=== PATIENT | male | born 1955 | race Caucasian/White ===

== ENCOUNTER 2023-12-09 15:30 | Inpatient (IN) | payer OTHER, SELFPAY ==
[2023-12-09] VITALS (28 sets, daily range): BP systolic 86–129; BP diastolic 60–100; BMI 22.1; BMI 21.1
--- NOTE | 2023-12-09 10:46 | ED.GENMED ---
History of Present Illness
General
Chief Complaint: Breathing Problem
Source: patient
Exam Limitations: none
Time Seen by Provider: 12/09/23 10:16
Nursing documentation reviewed up to this point in time: agreed with
Travel History
Have you had any contact with someone who has COVID-19?: No
Do you have any symptoms of coronavirus? Fever > 100 degrees, chills, cough, shortness of breath, sore throat, loss of taste or smell, muscle aches, or headache?: No
History of Present Illness
History of Present Illness:
The patient is a 68-year-old man with a past medical history of atrial fibrillation, CHF, COPD, and pulmonary hypertension who was sent from Dr. Arzola's office today for shortness of breath, acute hypoxia, hypotension and concerns for possible
CHF. Patient reports severe swelling of both of his legs and states that the fluid is accumulating now into his abdomen. He reports the swelling in his legs have gotten worse over the last 2 weeks. He denies worsening cough and and any fever. He
denies chest pain. He reports he has only been compliant with his Eliquis and admits that he has not taken any of his other medication. Patient reports he does not use oxygen at baseline. Patient reports he last had Eliquis this morning.
Past History
Past History
ED Past Medical History: Arrthythmia (AFib), Cancer (Lung cancer), CHF, COPD and HTN
ED Past Surgical History: Other
Social History
Tobacco: Former smoker
Alcohol: Former
Drug: None
Personal: Other (Has a girlfriend)
Living: with family
Employment: Other
Family History
Family History: Other
Review of Systems
Review of Systems
Allergies reviewed?: Yes
Other source history: other (Dr. Arzola's office note from today)
All Other Systems: ROS reviewed and negative except as documented in HPI and ROS
Constitutional: Reports weight loss and fatigue
EENT: Reports no symptoms
Respiratory: Reports trouble breathing
Cardiac: Reports palpitations
ABD/GI: Reports anorexia
: Reports no symptoms
Musculoskeletal: Reports edema
Skin: Reports no symptoms
Neurological: Reports no symptoms
Endocrine: Reports no symptoms
Hematologic/Lymphatic: Reports no symptoms
Psychiatric: Reports no symptoms
Phy Exam
Physical Exam
Physical Exam:
Physical Exam
General: Chronically ill-appearing, pale, conversational in no acute distress
Neck: supple.
Heart: Irregular, tachycardic
Lungs: no acute respiratory distress. Decreased breath sounds bilaterally, right greater than left
Abdomen: normal bowel sounds. not tender. no CVAT
Neuro: alert and oriented. no focal neurological deficits
Skin: no rash
Psychiatric: well kept. interactive and cooperative
Extremities: 3+ pitting edema bilateral lower extremities up to bilateral upper legs with weeping legs
Scores
Heart Failure Risk
Heart Failure Risk Score: Not Applicable
Course
Orders/Labs/Results
Orders:
Orders
12/09/23 10:43
Basic Metabolic Panel Urgent
Complete Blood Count/With Diff Urgent
NT-proBNP Urgent
Prothrombin Time Urgent
Troponin I Urgent
12/09/23 10:44
CR Chest Portable - 1 View Urgent
Comment:
Reason For Exam: SOB, hypoxia
Reason Study Needs to be Portable: Patient Unstable
12/09/23 11:00
Diltiazem 125 mg/125 ml Nss [Cardizem] 125 mg in 125 ml IV NOW
Initial dose in mg/hr, then titrate:: 5
Titrate to keep:: Heart rate 80-100 bpm
Titrate by mg/hr:: 5 mg/hr
Frequency of titrations (minutes):: 15
Maximum dose in mg/hr:: 15
Diltiazem HCl [Cardizem] 5 mg IV NOW STA
12/09/23 11:36
Electrocardiogram (*1) Urgent
Reason for Study: Shortness of Breath
EKG- Treatment ONCE
12/09/23 11:43
Potassium Urgent
Abnormal Lab Results
12/09/23
10:43
MCHC 32.7 L g/dL
(33.0-37.0)
RDW 19.7 H %
(11.5-14.5)
MPV 11.0 H fL
(7.4-10.4)
PT 26.0 H Sec
(11.4-14.6)
Sodium 126 L mmol/L
(135-145)
Chloride 95 L mmol/L
(98-107)
Carbon Dioxide 21 L mmol/L
(22-30)
BUN 44 H mg/dl
(9-20)
12/09/23 10:43
12/09/23 11:43
Vital Signs
Initial and Last Documented VS:
Initial Vital Signs
Temp Pulse Resp BP Pulse Ox
97.4 F 72 16 122/96 76
12/09/23 10:04 12/09/23 10:04 12/09/23 10:04 12/09/23 10:04 12/09/23 10:04
Last Documented Vital Signs
Temp Pulse Resp BP Pulse Ox
97.4 F 72 16 122/96 76
12/09/23 10:04 12/09/23 10:04 12/09/23 10:04 12/09/23 10:04 12/09/23 10:04
MDM/Problems Addressed
Differential Diagnosis Includes:
Decompensated CHF due to uncontrolled A-fib, liver failure, metastatic cancer
MDM/Problems Addressed:
Patient presents with acute on chronic shortness of breath and bilateral leg edema as well as acute hypoxia
Chronic conditions affecting care: Cardiomyopathy, Arrhythmia and COPD
Acute Exacerbation and/or Progression of Chronic Illness:
Patient's symptoms may represent acute exacerbation of CHF and acute on chronic A-fib
Acute Exacerbation and/or Progression of Chronic Illness: Arrhythmia
*Pulse Oximetry
Patient hypoxic: yes
*EKG
Interpreted by ED Provider?: Yes
Interpretation: abnormal
Comparison EKG: changes noted
Rate: tachycardiac
Rhythm: a-fib
[place]: right axis deviation
Interval: normal interval
QRS Pattern: left vent hypertrophy
Ischemia: non-specific ST changes
*Combination Building Inspector Interpretation
Rate: tachycardiac
Interpretation: abnormal
Rhythm: a-fib
*Critical Care Note
Total Time (30-74mins, 75-104mins- exclusive of procedures): 45 min
comment:
45 minutes of critical care time given to the patient including reviewing his lab work, EKG, chest x-ray and discussing the case with hospitalist, sales account leader as well as reviewing prior medical records when patient was admitted for CHF and rapid
A-fib
Data Reviewed
Review of Other/Old Records Reveals: Discharge Summary (Discharge summary reviewed from hospitalist from 11/12 patient was admitted for CHF and rapid A-fib)
Source: patient
Patient Management
Discussion with other providers: Hospitalist and Other (Dr. Rowe recommending Cardizem drip as blood pressure tolerates)
Escalation/DeEscalation of care consider admission/obs:
Given patient's acute hypoxia and anasarca, decision made to admit the patient for uncompensated heart failure and to rate control his A-fib.
ED Attending Note
-
Portions of this chart may have been created with voice recognition software.� Occasional wrong word or��sound alike� substitutions may have occurred due to the inherent limitations of voice recognition software.
Discharge Plan
Departure
Patient Disposition: Admit
Date of Disposition: 12/09/23
Time of Disposition: 10:59
Admit to: Telemetry
Presentation/result/management discussed w/ accepting MD/DO: Hospitalist
Patient with high blood pressure during this ER visit?: Yes
Condition: Fair
Covid-19: Not Applicable
Discharge Problem:
Acute on chronic systolic CHF (congestive heart failure), Anasarca, Acute hyponatremia, Acute hypoxic respiratory failure, History of medication noncompliance
Prescriptions:
No Action
sennosides [Senokot] 8.6 mg Tablet
8.6 mg PO DAILY PRN (Reason: constipation)
Eliquis 5 mg Tablet
5 mg PO BID
Interventions
Interventions:
*Risk Screen - Suicide Last Done: 12/09/23 10:08
*General Assessment Last Done: 12/09/23 10:08
*Neglect/Abuse Screening Last Done: 12/09/23 10:08
Discharge Date and Time
Print Language: BENGALI
[2023-12-09 10:53] LABS: % Basophils 0.3 % (0-2); % Eosinophils 0.5 % (0-6); % Immature Granulocytes 0.2 % (0-0.5); % Lymphocytes 25.7 % (20.5-51.1); % Monocytes 5.7 % (1.7-9.3); % Neutrophils 67.6 % (42.2-75.2); Absolute Lymphocytes 1.5 10^3/uL (1.2-3.4); Absolute Monocytes 0.3 10^3/uL (0.1-0.6); Absolute Neutrophils 4.1 10^3/uL (1.4-6.5); Hematocrit 46.8 % (39.0-52.0); Hemoglobin 15.3 g/dL (13.0-18.0); Mean Corp Hgb Conc. 32.7 g/dL (33.0-37.0); Mean Corpuscular Hgb 29.5 pg (27.0-31.0); Mean Corpuscular Volume 90.3 fL (80.0-94.0); Nucleated Red Blood Cells % 0 % (-); Platelet Count 190 10^3/uL (130-400); Red Blood Cell Count 5.18 10^6/uL (4.70-6.10); Red Cell Dist. Width 19.7 % (11.5-14.5)
--- NOTE | 2023-12-09 11:01 | HPS.HSE ---
Family Physician
-
Family Physician:
Chief Complaint
-
Shortness of breath
History of Present Illness
68 male atrial fibrillation CHF COPD pulm hypertension former smoker alcohol use referred to ED for evaluation by machine tool builder following outpatient appointment noted concerns for acute hypoxic respiratory failure swelling lower extremities. Found
to be in A-fib RVR in the ED. Since improved on diltiazem gtt. Poor historian, noncompliant with his medications. Reports having self discontinued some of his medications due to feeling improved-did not feel that he required them anymore.
Reports compliance with Eliquis however. Denies chest pain palpitations fevers chills nausea vomiting diarrhea. Reports chronic intermittent constipation. Saturating low 90s on 2 L heart rate controlled and blood pressure stable on diltiazem gtt.
as prescribed by ED. Labs notable for hyponatremia 126 BNP 23,200 no kidney dysfunction insufficiency noted. Chest x-ray appreciated no active cardiopulmonary disease
Medical History
Past Medical History
Past Medical History: Reports Other (as above)
Past Surgical History: Reports Other (as above)
Social History
Tobacco: Former Smoker
Alcohol: Former
Living: Alone
Family History
Family History: Not pertinent (reviewed)
Allergies / Home Medications
Allergies reflects when Allergies were last updated in [facility].
Home Medications with original date entered in [facility]
Allergy/Medication List:
Allergies
Allergy/AdvReac Type Severity Reaction Status Date / Time
lobster Allergy Anaphylaxis Verified 12/09/23 16:49
Penicillins Allergy Unknown - Verified 12/09/23 10:03
Tolerates
ceftriaxone
Home Medications
apixaban 5 mg tablet (Eliquis) 5 mg PO BID 12/09/23
sennosides 8.6 mg tablet (Senokot) 8.6 mg PO DAILY PRN constipation 12/09/23
Review of Systems
-
A 12 point ROS was completed and negative except as noted: Yes
Constitutional: Reports Sleep Disturbance (as below)
Physical Exam
Vital Signs
Vital Signs
Temp Pulse Resp BP Pulse Ox
97.4 F 72 16 122/96 76
12/09/23 10:04 12/09/23 10:04 12/09/23 10:04 12/09/23 10:04 12/09/23 10:04
Physical Exam
General: Other (as below)
Laboratory Results
-
12/09/23 10:43
Impression/Plan
-
ROS
General: Denies fever chills night sweats unexpected weight loss
Neuro: Denies seizure shaking loss of consciousness dizziness vertigo
Psych: denies depression hallucinations confusion manic episodes
Endocrine: Denies polyuria polydipsia polyphagia heat/cold intolerance
HEENT: Denies blindness visual disturbances epistaxis
Pulmonary: denies coughing hemoptysis sneezing reports sob dyspnea on exertion
Cardiovascular: denies chest pain palpitations reports b/l leg swelling
Hematology: denies signs symptoms of anemia easy bruising/bleeding
Gastrointestinal: denies nausea vomiting diarrhea hematemesis hematochezia melena reports chronic intermittent constipation
Genito-Urinary: denies retention incontinence dysuria
Musculoskeletal: reports weakness ambulatory dysfunction, doesn't have a walker but uses chair in apartment to assist with mobility while home
Dermatology: weeping lower ext wounds swelling
Physical Exam
General: No pallor, cyanosis, or jaundice. Appears Chronically Ill Cachectic appearing thoracic upper body
HEENT: Throat clear. PERRLA Normocephalic atraumatic
NECK: Supple. No JVD Carotid Bruits
RESPIRATORY: Lungs clear to auscultation. No crackles wheezes stridor
CVS: S1, S2 normal. RRR. No murmur, rub or gallop.
ABDOMEN: Soft, non-tender. No distension. BS+/normal.
EXTREMITIES: Lower ext edema swelling b/l +2 pitting
BAGGAGE AGENT SUPERVISOR: AOx3
IMPRESSION:
68 male atrial fibrillation CHF COPD pulm hypertension former smoker alcohol use referred to ED for evaluation by machine tool builder following outpatient appointment noted concerns for acute hypoxic respiratory failure swelling lower extremities. Found
to be in A-fib RVR in the ED. Since improved on diltiazem gtt. Poor historian, noncompliant with his medications. Reports having self discontinued some of his medications due to feeling improved-did not feel that he required them anymore.
Reports compliance with Eliquis however. Denies chest pain palpitations fevers chills nausea vomiting diarrhea. Reports chronic intermittent constipation. Saturating low 90s on 2 L heart rate controlled and blood pressure stable on diltiazem gtt,
as prescribed by ED. Labs notable for hyponatremia 126 BNP 23,200 no kidney dysfunction insufficiency noted. Chest x-ray appreciated no active cardiopulmonary disease
PLAN:
#Acute on chronic HFmrEF
#A-fib RVR
#Acute hypoxic respiratory failure
IVU admit
Continue diltiazem gtt.
IV Lasix 20 twice daily
Cardio eval appreciated
Follow-up echo
Daily weight I/O
Continue Eliquis
PT/OT eval
#Hyponatremia
Fluid restriction
#COPD
#Pulm hypertension
No wheezing noted
Continue oxygen supplementation as necessary
Xopenex as needed, avoiding albuterol due to tachycardia as above
#Cachectic appearing thoracic upper body, bony promninence ribs noted
suspect malnutrition
dietary eval
DVT prophylaxis Eliquis
GI prophylaxis Protonix
Meds reconciled and resumed as appropriate
Full code
I spent a total of 77 minutes with the patient or on the floor. More than 50% of this time involved counseling and coordination of care.
[2023-12-09 11:03] LABS: INR 2.35
[2023-12-09] MEDS: CARDIZEM 5 MG IV (11:14)
[2023-12-09] MEDS: CARDIZEM 125 IV (11:14)
[2023-12-09 11:15] LABS: Blood Urea Nitrogen 44 mg/dl (9-20); Calcium 9.4 mg/dl (8.4-10.2); Carbon Dioxide 21 mmol/L (22-30); Chloride 95 mmol/L (98-107); Glucose 98 mg/dl (70-99); Sodium 126 mmol/L (135-145); eGFR > 60.00
[2023-12-09 11:21] LABS: NT-proBNP 23200 pg/ml; Troponin I 0.031 ng/ml
--- NOTE | 2023-12-09 11:57 | CON.CAR ---
Addendum entered and electronically signed by Valente Rowe MD 12/09/23 13:11:
I saw and examined the patient.
The SHIPYARD PAINTER HELPER's note was reviewed and I agree with the note.
68-year-old male with a history of persistent atrial fibrillation, anticoagulation with Eliquis, cirrhosis, nonischemic cardiomyopathy with ejection fraction of 45%, COPD, prior history of smoking who has marked bilateral lower extremity edema which
he says has been increasing over the last 3 weeks in addition he was noted to be in A-fib with RVR. Patient's been noncompliant with medications and had stopped his digoxin and metoprolol. He says he has been off these medications for about a
month. He reports being compliant with Eliquis. Not currently complaining of shortness of breath. Chest x-ray without overt evidence of heart failure. Patient has marked bilateral lower extremity edema extending up through the thighs and also
has abdominal wall edema.
-Rate control with IV Cardizem
-Continue anticoagulation
-Diuresis with IV Lasix but would do cautiously in this patient will have also has a history of cirrhosis.
-Echocardiogram to reassess left ventricular function
-Additional treatment of GI issues and cirrhosis as directed by primary team
Original Note:
Consultation
Consultation Request
Date/Time Consultation Requested: 12/09/23 1100
Date/Time Consultation Performed: 12/09/23 1150
Requesting Provider: Dr. Ray
Performing Provider: Karishma RAYA for Dr. Rowe
Reason for Consultation: AFIB, CHF
Medical History
-
Chief Complaint: LE edema
History of Present Illness:
68 y/o male with NICM with EF 45%, persistent AFIB on Eliquis, hx ETOH use (no longer drinks), Tobacco use (no longer smokes), cirrhosis, COPD, GERD who is here for evaluation from Dr. Arzola's office for further evaluation. He has had worsened LE
edema over the past few weeks. He also reports vague abdominal symptoms such as constipation. Occasional SOB, but that is not a main complaint. He has been taking Eliquis for OAC, but stopped all of his other medicines (unclear timeline, but dig and
lasix seem to be recent, and metoprolol was a while ago). He didn't think they were helping. O2 sat in pul office was 89% and he is on O2 by [place] now. He is in no distress at the time of my assessment. AFIB with RVR noted on arrival, rates improved
on dilt drip and BP stable. He was seen in our office 12/08/23 and did not follow up since he was feeling fine. He hasn't been checking weights.
Past Medical History
Past Medical History: Arrhythmias (AFIB), CHF, COPD, GERD and Other (as above)
Social History
Tobacco: Former Smoker
Alcohol: Former
Family History
Family History: Reviewed & Not Pertinent
Allergies / Home Medications
Allergy/AdvReac Type Severity Reaction Status Date / Time
lobster Allergy Severe Anaphylaxis Verified 12/09/23 10:03
Penicillins Allergy Unknown - Verified 12/09/23 10:03
Tolerates
ceftriaxone
�Medication �Instructions �Recorded �Confirmed �Type
apixaban 5 mg tablet (Eliquis) 5 mg PO BID 12/09/23 12/09/23 History
sennosides 8.6 mg tablet (Senokot) 8.6 mg PO DAILY PRN constipation 12/09/23 12/09/23 History
Review of Systems
-
History Source: Patient
All other systems: Negative unless noted
Abdomen/GI: Constipated
Musculoskeletal: Edema
Physical Exam
Vital Signs
Temp Pulse Resp BP Pulse Ox
97.4 F 72 16 122/96 76
12/09/23 10:04 12/09/23 10:04 12/09/23 10:04 12/09/23 10:04 12/09/23 10:04
Lab Results
12/09/23 10:43
Troponin I 0.031 ng/ml 12/09/23 10:43
Eyd-C-Fnuyudkhbel Pept 22694 pg/ml 12/09/23 10:43
Physical Exam
General: No Apparent Distress
HEENT: Normocephalic and Anicteric
Respiratory: Clear and Other (On o2 by [place])
Cardiac: Irregular Rhythm
GI: Soft, Non Tender and Non Distended
Musculoskeletal: Edema (significant BLE edema)
Skin: Warm and Dry
Neuro: AO x 3
Psych: Calm
Impression / Plan
-
AFIB with RVR: persistent
-was on metoprolol and digoxin, but stopped both, so HR is expectedly fast
-monitor on dilt drip, but will need to adjust back to BB this admit
-continue Eliquis for OAC
Sqvmr-ec-msxzpwj HFmEF (based on last echo with EF 45%):
-update echo
-IV lasix, which requires intensive monitoring
Hyponatremia:
-monitor with IV lasix
COPD, suspected:
-needs pulm follow-up
-no longer smoking
Constipation, GERD, cirrhosis:
-per primary
Data Reviewed
-
EKG: Tracing Personally Visualized and interpreted (AFIB with RVR 106 BPM)
Radiology: Report Reviewed by me (CXR: No active cardiopulmonary disease.)
Medical Tests (Nuc Med, Echo etc): Report Reviewed by me (echo 11/09/22:Mild LV systolic dysfunction (while in rapid atrial fibrillation). ejection fraction is 45%. Enlarged right ventricular size with reduced right ventricular function. Moderate
right and mild left atrial enlargement. Mild to moderate mitral regurgitation.Mild to moderate TR)
Labs: Labs Reviewed by me
[2023-12-09 11:58] LABS: Potassium 4.6 mmol/L (3.5-5.1)
[2023-12-09] MEDS: LASIX 20 MG IV ×2 (14:16→16:30)
--- NOTE | 2023-12-09 18:12 | PTCARENOTE ---
Pt received from ED. AAOx3. IV Cardizem infusing @ 5mg/hr through R FA PIV. Titrating to goal HR 80-100. 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 HRs 80-100s. Weaned from 2L to room air. Pt sating 94% on room air. Assessment documented. Multiple venous ulcers
noted on LEs. Covered with foam dressings. Pt now resting in bed with dinner tray at bedside. Call ignacio within reach.
[2023-12-09] MEDS: ELIQUIS 5 MG PO (19:24)
--- NOTE | 2023-12-09 21:05 | PTCARENOTE ---
Pt received start of shift, HR A-fib 70s-80s. Cardizem infusing at 5mg/hr per protocol. Pt states they feel 'so much better', especially in their legs. Educated pt on plan of care and fall risk status, pt states no questions at this time. Pt denies
any SOB at rest, any pain, or lightheadedness/dizziness. Informed to notify RN if any changes, call ignacio within reach.
[2023-12-10] VITALS (12 sets, daily range): BP systolic 88–102; BP diastolic 53–71; PULSE 93–101; BMI 19.1
[2023-12-10 03:53] LABS: Hematocrit 44.4 % (39.0-52.0); Hemoglobin 14.9 g/dL (13.0-18.0); Mean Corp Hgb Conc. 33.6 g/dL (33.0-37.0); Mean Corpuscular Hgb 29.6 pg (27.0-31.0); Mean Corpuscular Volume 88.3 fL (80.0-94.0); Mean Platelet Volume 10.9 fL (7.4-10.4); Platelet Count 182 10^3/uL (130-400); Red Blood Cell Count 5.03 10^6/uL (4.70-6.10); Red Cell Dist. Width 19.5 % (11.5-14.5)
[2023-12-10 04:17] LABS: Blood Urea Nitrogen 41 mg/dl (9-20); Calcium 9.2 mg/dl (8.4-10.2); Carbon Dioxide 29 mmol/L (22-30); Chloride 97 mmol/L (98-107); Estimated Creatinine Clearance 70 ml/min; Glucose 92 mg/dl (70-99); Magnesium 1.5 mg/dl (1.6-2.3); Phosphorus 3.6 mg/dl (2.5-4.5); Potassium 4.1 mmol/L (3.5-5.1); Sodium 132 mmol/L (135-145); eGFR > 60.00
[2023-12-10] MEDS: CARDIZEM 125 IV (04:25)
[2023-12-10 04:48] LABS: TSH Reflex To Free T4 5.43 uIU/ml (0.47-4.68)
[2023-12-10 05:07] LABS: Hepatitis C Antibody Negative (Negative)
[2023-12-10 05:17] LABS: Free T4 1.27 ng/dl (0.78-2.19)
--- NOTE | 2023-12-10 07:30 | PTCARENOTE ---
The patient complained of the dressings on his lower legs. He stated that the dressings were causing pain to his skin. He ask me to remove the dressings. I removed the dressings, cleansed them with saline, and elevated his legs on two pillows with a
fidelina underneath. He has a small venous ulcer on his right lower leg that measures 0.2 cm round. He also has two miryam ulcers on his left lower leg that measures 2x2 cm and 0.8 cm. Scant clear drainage was noted on the dressings.
[2023-12-10] MEDS: ELIQUIS 5 MG PO ×2 (08:48→20:25)
[2023-12-10] MEDS: PROTONIX 40 MG PO (08:48)
[2023-12-10] MEDS: FLUSH (NSS) 2 FLUSH IV (08:49)
[2023-12-10] MEDS: LASIX 20 MG IV (08:49)
--- NOTE | 2023-12-10 08:58 | W.PN.CD ---
Today's Communication / Plan
-
-Patient with a decline in LVEF on echocardiogram yesterday, now 30-35% (previously 45% 1 year ago), severe biatrial enlargement, severe mitral regurgitation, and moderate to severe tricuspid regurgitation; due to medication/medical noncompliance.
-Continue Lasix 20 mg IV BID.
-Will reinitiate Toprol-XL 25 mg daily and Jardiance 10 mg daily; further GDMT limited by low blood pressure.
-Will discontinue Cardizem drip; no benefit in CHF.
-Will restart digoxin.
-Conservative cardiac management overall; poor candidate for any aggressive measures.
Impression / Plan
-
68 y/o male with NICM (previous EF 45%), persistent AFIB (on Eliquis), hx ETOH use (no longer drinks), Tobacco use (no longer smokes), cirrhosis, COPD, GERD referred for evaluation from Dr. Arzola's office. He has had worsened LE edema over the
past few weeks. Occasional SOB, but that is not a main complaint. He has been taking Eliquis for OAC, but stopped all of his other medicines (unclear timeline, but dig and lasix seem to be recent, and metoprolol was a while ago). He didn't think
they were helping, and he has been noncompliant with Cardiology follow-up--last seen in the office 1 year ago. O2 sat in pul office was 89% and he is on O2 by [place] now. AFIB with RVR noted on arrival. He was seen in our office 12/07/22 and did not
follow up since he was feeling fine. He hasn't been checking weights.
Wcldr-ob-baeswvj HFrEF (EF 30-35%):
-Patient with a decline in LVEF on echocardiogram yesterday, now 30-35% (previously 45% 1 year ago), severe biatrial enlargement, severe mitral regurgitation, and moderate to severe tricuspid regurgitation; due to medication/medical noncompliance.
-Continue Lasix 20 mg IV BID.
-Will reinitiate Toprol-XL 25 mg daily and Jardiance 10 mg daily; further GDMT limited by low blood pressure.
-Poor candidate for ICD due to medical noncompliance.
AFIB with RVR: persistent
-was on metoprolol and digoxin, but stopped both, so HR is expectedly fast
-Will discontinue Cardizem drip; no benefit in CHF.
-Will place back on Toprol-XL 25 mg daily.
-Will restart digoxin.
-Continue Eliquis for OAC.
Valvular heart disease:
-Severe MR and moderate to severe TR noted on echocardiogram yesterday.
-Conservative cardiac management overall; poor candidate for any aggressive measures.
Hyponatremia:
-Continue to monitor with IV lasix.
COPD, suspected:
-needs pulm follow-up
-no longer smoking
Constipation, GERD, cirrhosis:
-Management as per primary
Physical Exam
Vital Signs/Labs
Vital Signs
Temp Pulse Resp BP Pulse Ox
99.4 F 91 18 94/62 96
12/10/23 07:45 12/10/23 08:00 12/10/23 07:45 12/10/23 07:48 12/10/23 07:45
12/09/23 12/10/23 12/11/23
06:59 06:59 06:59
Actual Weight 70.4 kg
12/10/23 03:42
12/10/23 03:41
PT 26.0 Sec (11.4-14.6) H 12/09/23 10:43
INR 2.35 12/09/23 10:43
Magnesium 1.5 mg/dl (1.6-2.3) L 12/10/23 03:41
Free T4 1.27 ng/dl (0.78-2.19) 12/10/23 03:41
12/09/23
10:43
Ukl-I-Lgpbmkqnqit Pept [id number]
LAB Results
12/09/23
10:43
Troponin I 0.031
Physical Exam
Constitutional: No acute distress and Comfortable
EENT: Anicteric
Cardiovascular: Rhythm/rate is irregular, Pedal edema present (2+), Systolic murmur present (2/6) and S1S2 is normal
Respiratory: Respiratory effort normal, Wheeze Absent and Other (Decreased bibasilar breath sounds)
GI: Soft
Neuro/Psych: AO x 3
Data Reviewed
-
Date of Service: December 10, 2023
EKG: Tracing Personally Visualized and interpreted (Telemetry: Atrial fibrillation)
Echo: Report Reviewed by me (EF 30-35%, severe MR, moderate to severe TR, severe biatrial enlargement)
Medical Tests (PFT, Pathology etc): Discussed with Patient
Labs: Labs Reviewed by me
[2023-12-10] MEDS: LANOXIN 250 MCG PO (09:13)
[2023-12-10] MEDS: JARDIANCE 10 MG PO (09:13)
--- NOTE | 2023-12-10 09:15 | PTCARENOTE ---
Discontinued the diltiazem gtt as per order.
--- NOTE | 2023-12-10 09:37 | W.PN.HOSP.TC ---
Today's Communication/Plan
-
heart failure GDMT, digoxin as per cardio
PT/OT
pain control
vascular eval
Assessment / Plan
Assessment / Plan
Physical Exam
General: No pallor, cyanosis, or jaundice. Appears Chronically Ill Cachectic appearing thoracic upper body
HEENT: Throat clear. PERRLA Normocephalic atraumatic
NECK: Supple. No JVD Carotid Bruits
RESPIRATORY: Lungs clear to auscultation. No crackles wheezes stridor
CVS: S1, S2 normal. RRR. No murmur, rub or gallop.
ABDOMEN: Soft, non-tender. No distension. BS+/normal.
EXTREMITIES: Lower ext edema swelling b/l +2 pitting, dusky appearance toes LLE, LLE also appears smaller and more cool to touch compared to RLE, palpable dorsal pedis pulses
AUDIO DIRECTOR: AOx3
IMPRESSION:
68 male atrial fibrillation CHF COPD pulm hypertension former smoker alcohol use referred to ED for evaluation by delivery assistant following outpatient appointment noted concerns for acute hypoxic respiratory failure swelling lower extremities. Found
to be in A-fib RVR in the ED. Since improved on diltiazem gtt. Poor historian, noncompliant with his medications. Reports having self discontinued some of his medications due to feeling improved-did not feel that he required them anymore.
Reports compliance with Eliquis however. Denies chest pain palpitations fevers chills nausea vomiting diarrhea. Reports chronic intermittent constipation. Saturating low 90s on 2 L heart rate controlled and blood pressure stable on diltiazem gtt,
as prescribed by ED. Labs notable for hyponatremia 126 BNP 23,200 no kidney dysfunction insufficiency noted. Chest x-ray appreciated no active cardiopulmonary disease
PLAN:
#Acute on chronic HFmrEF
#A-fib RVR
#Acute hypoxic respiratory failure
IVU admit
Continue diltiazem gtt.
IV Lasix 20 twice daily
ECHO appreciated EF 30-35% severe MR
Cardio eval appreciated re-initiated Toprol-XL 25 mg daily and Jardiance 10 mg daily, cardizem gtt discontinued and digoxin restarted
Daily weight I/O
Continue Eliquis
PT/OT eval appreciated SNF rehab
Wean O2 supplementation as tolerated
#LLE pain suspect d/t PAD
#B/L Lower ext PAD noted on arterial study VITALIY
Vascular eval requested
pain control Tylenol mild pain, oxycodone mod severe pain, morphine severe breakthrough pain
PT/OT as above
Feet XR appreciated
-No acute fractures or dislocations.
-Mild to moderate degenerative changes within both first metatarsophalangeal joints.
-Nonspecific geographic area of osteopenia within the RIGHT fifth metatarsal head. No definitive erosion appreciated.
-Significant dorsal soft tissue edema within both feet.
#Hyponatremia
Fluid restriction
since improved from mid 120s to low 130s
#COPD
#Pulm hypertension
No wheezing noted
wean O2 supplementation as tolerated
Xopenex as needed, avoiding albuterol due to tachycardia as above
#Cachectic appearing thoracic upper body, bony promninence ribs noted
suspect malnutrition
dietary eval
DVT prophylaxis Eliquis
GI prophylaxis Protonix
Meds reconciled and resumed as appropriate
Full code
I spent a total of 57 minutes with the patient or on the floor. More than 50% of this time involved counseling and coordination of care.
Anticipated Discharge: > 48 hours
Subjective/Interval History
-
Date of Service: December 10, 2023
Seen and examined at bedside, reporting pain difficulty standing LLE foot. denies numbness. Dorsal pedis pulses noted b/l. Patient otherwise appears well at rest, reports significant improvement in lower ext swelling since start of diuretics.
Objective Data
-
Labs:
Laboratory Results
12/10/23 12/10/23
03:41 03:42
WBC 8.0
Hgb 14.9
Hct 44.4
Plt Count 182
Sodium 132 L
Potassium 4.1
Chloride 97 L
Carbon Dioxide 29
BUN 41 H
Creatinine 1.0
Glucose 92
Calcium 9.2
Vital Signs:
Vital Signs
Temp Pulse Resp BP Pulse Ox
99.4 F 87 18 94/62 96
12/10/23 07:45 12/10/23 09:13 12/10/23 07:45 12/10/23 07:48 12/10/23 07:45
I&O
12/09/23 12/10/23 12/11/23
06:59 06:59 06:59
Intake Total 240 / 240 180 / 180
Output Total 2600 / 2600 100 / 100
Balance -2360 / -2360 80 / 80
--- NOTE | 2023-12-10 10:11 | PTCARENOTE ---
Addendum entered by Anitha Quintana RN 12/10/23 10:20:
As I was assisting the patient to the stretcher, I barely touched his right posterior ankle and he yelled out in pain. I sent the patient to US and then to x-ray.
Original Note:
The patient had difficulty standing on his fight foot. He could not put pressure down on his right heel. He complained that it was too painful. He stated that it hurts from his heel to his posterior ankle. notified.
[2023-12-10] MEDS: TOPROL XL 25 MG PO (11:54)
--- NOTE | 2023-12-10 13:38 | WOUNDNOTE ---
[facility] RN note: Patient admitted with worsening LE pain and edema.
See H&P for complete history.
PMH: CHF, A-fib, respiratory failure
Wound Location and type/assessment: Patient admitted with: Worsening LE edema. Some small open areas of venous appearing wounds noted bilaterally. No drainage or erythema noted. Patient reports severe pain in bilateral LE. He declines further
assessment such as turning or wound care at this time. Awaiting results of VITALIY and ultrasound. Spoke to Anitha VARGAS who noted sacrum was intact and plans on applying protective sacral foam when patient can tolerate moving. Heels are intact.
Appetite: Reports fair. BMI 19
Pressure redistribution devices in place: Centrella Max Air
Plan: Staff can clean areas with normal saline and cover with silicone foam as tolerated. Await result of VITALIY to see if compression appropriate. Patient states he cannot tolerate compression at this time. ALICIA Welsh updated. Will confirm orders
and follow as needed.
Updated care plan and will follow as needed.
Note to case management of equipment requested for discharge:
Recommend follow up at wound care center upon discharge.
--- NOTE | 2023-12-10 13:53 | CM ---
Chart reviewed. Patient is independent of ADLS, lives alone in a apartment, 0 BOB, 0 DME. Patient with a supportive girlfriend who occasionally stays with the patient. Patient c/o of a lot of swelling and pain in his legs causing him to have
trouble ambulating. PT evaluation recommending SNF. Patient is refusing at this time, he said he will be able to get arounds much better once they fix the swelling and pain. Patient also refusing VN. Plan is for the patient to return home vs SNF.
CM to follow
[2023-12-10] MEDS: TYLENOL 650 MG PO ×2 (15:42→22:51)
[2023-12-10] MEDS: LASIX IV (15:52)
--- NOTE | 2023-12-10 15:58 | PTCARENOTE ---
The patient's BP was 91/53 with a HR of 87. He is due for 20mg of IV Lasix. Notified Dr. Shelley. 1600 Lasix held.
--- NOTE | 2023-12-10 18:19 | PTCARENOTE ---
The patient requested to have all 4 rails up on his bed.
--- NOTE | 2023-12-10 23:57 | PTCARENOTE ---
ptc/o foot discomfort. requesting tylenol for pain. tylenol given .
[2023-12-11] VITALS (9 sets, daily range): BP systolic 84–105; BP diastolic 62–77; BMI 20.3
[2023-12-11] MEDS: TYLENOL 650 MG PO ×4 (05:11→19:37)
--- NOTE | 2023-12-11 05:16 | PTCARENOTE ---
pt states that tylenol helped his foot pain and allowed him to sleep.tylenol given again for foot pain. pt in no acute distress.
[2023-12-11 05:54] LABS: Hematocrit 37.6 % (39.0-52.0); Hemoglobin 12.6 g/dL (13.0-18.0); Mean Corp Hgb Conc. 33.5 g/dL (33.0-37.0); Mean Corpuscular Hgb 30.3 pg (27.0-31.0); Mean Corpuscular Volume 90.4 fL (80.0-94.0); Mean Platelet Volume 11.1 fL (7.4-10.4); Platelet Count 126 10^3/uL (130-400); Red Blood Cell Count 4.16 10^6/uL (4.70-6.10); Red Cell Dist. Width 18.8 % (11.5-14.5); White Blood Cell Count 5.1 10^3/uL (4.8-10.8)
[2023-12-11 06:02] LABS: Blood Urea Nitrogen 33 mg/dl (9-20); Calcium 8.2 mg/dl (8.4-10.2); Carbon Dioxide 27 mmol/L (22-30); Chloride 98 mmol/L (98-107); Estimated Creatinine Clearance 80 ml/min; Glucose 91 mg/dl (70-99); Magnesium 1.6 mg/dl (1.6-2.3); Phosphorus 2.6 mg/dl (2.5-4.5); Sodium 132 mmol/L (135-145); eGFR > 60.00
--- NOTE | 2023-12-11 07:03 | W.PN.HOSP.TC ---
Today's Communication/Plan
-
heart failure GDMT, diuresis, digoxin as per cardio
PT/OT
pain control
replete Mg Potassium
daily weight I/O
Assessment / Plan
Assessment / Plan
Physical Exam
General: No pallor, cyanosis, or jaundice. Appears Chronically Ill Cachectic appearing thoracic upper body
HEENT: Throat clear. PERRLA Normocephalic atraumatic
NECK: Supple. No JVD Carotid Bruits
RESPIRATORY: Lungs clear to auscultation. No crackles wheezes stridor
CVS: S1, S2 normal. RRR. No murmur, rub or gallop.
ABDOMEN: Soft, non-tender. No distension. BS+/normal.
EXTREMITIES: Lower ext's wrapped, no pain at rest
COLLEGE INSTRUCTOR: AOx3
IMPRESSION:
68 male atrial fibrillation CHF COPD pulm hypertension former smoker alcohol use referred to ED for evaluation by transplant case manager following outpatient appointment noted concerns for acute hypoxic respiratory failure swelling lower extremities. Found
to be in A-fib RVR in the ED. Since improved on diltiazem gtt. Poor historian, noncompliant with his medications. Reports having self discontinued some of his medications due to feeling improved-did not feel that he required them anymore.
Reports compliance with Eliquis however. Denies chest pain palpitations fevers chills nausea vomiting diarrhea. Reports chronic intermittent constipation. Saturating low 90s on 2 L heart rate controlled and blood pressure stable on diltiazem gtt,
as prescribed by ED. Labs notable for hyponatremia 126 BNP 23,200 no kidney dysfunction insufficiency noted. Chest x-ray appreciated no active cardiopulmonary disease
PLAN:
#Acute on chronic HFmrEF
#A-fib RVR
#Acute hypoxic respiratory failure
IVU admit
Continue diltiazem gtt.
IV Lasix 20 twice daily
ECHO appreciated EF 30-35% severe MR
Cardio eval appreciated re-initiated Toprol-XL 25 mg daily and Jardiance 10 mg daily (cont) , cardizem gtt discontinued and digoxin restarted (cont)
Daily weight I/O
Continue Eliquis
PT/OT eval appreciated SNF rehab
Weaned off O2 supplementation
#LLE pain suspect d/t PAD
#B/L Lower ext PAD noted on arterial study VITALIY
Vascular eval appreciated adequate perfusion, no acute intervention necessary at this time, cont conservative mgmt
-Cedrick wrap for the patient from the toes to the thighs. Continue to keep legs elevated.
pain control Tylenol mild pain, oxycodone mod severe pain, morphine severe breakthrough pain
PT/OT as above
Feet XR appreciated
-No acute fractures or dislocations.
-Mild to moderate degenerative changes within both first metatarsophalangeal joints.
-Nonspecific geographic area of osteopenia within the RIGHT fifth metatarsal head. No definitive erosion appreciated.
-Significant dorsal soft tissue edema within both feet.
#Hyponatremia
Fluid restriction
since improved from mid 120s to low 130s
#Hypokalemia
monitor and replete as necessary
Magnesium
repleting for goal 2
#COPD
#Pulm hypertension
No wheezing noted
wean O2 supplementation as tolerated
Xopenex as needed, avoiding albuterol due to tachycardia as above
#Cachectic appearing thoracic upper body, bony promninence ribs noted
suspect malnutrition
dietary eval appreciated
cont nutrition supplement
DVT prophylaxis Eliquis
GI prophylaxis Protonix
Full code
I spent a total of 56 minutes with the patient or on the floor. More than 50% of this time involved counseling and coordination of care.
Anticipated Discharge: 24 - 48 hours
Subjective/Interval History
-
Date of Service: December 11, 2023
No acute distress. Reports pain much improved. Weaned off oxygen supplementation, stable respiratory status on room air.
Objective Data
-
Labs:
Laboratory Results
12/11/23
05:07
WBC 5.1
Hgb 12.6 L
Hct 37.6 L
Plt Count 126 L D
Sodium 132 L
Potassium 3.0 L D
Chloride 98
Carbon Dioxide 27
BUN 33 H
Creatinine 0.8
Glucose 91
Calcium 8.2 L
Vital Signs:
Vital Signs
Temp Pulse Resp BP Pulse Ox
98.1 F 97 18 102/72 97
12/11/23 03:20 12/11/23 03:17 12/11/23 03:20 12/11/23 03:17 12/11/23 03:20
I&O
12/10/23 12/11/23 12/12/23
06:59 06:59 06:59
Intake Total 240 / 240 420 / 420
Output Total 2600 / 2600 1575 / 1575
Balance -2360 / -2360 -1155 / -1155
[2023-12-11] MEDS: KCL 270 MEQ IV (07:51)
[2023-12-11] MEDS: TOPROL XL 25 MG PO (07:52)
[2023-12-11] MEDS: PROTONIX 40 MG PO (07:52)
[2023-12-11] MEDS: FLUSH (NSS) 2 FLUSH IV (07:52)
[2023-12-11] MEDS: ELIQUIS 5 MG PO ×2 (07:52→19:37)
[2023-12-11] MEDS: JARDIANCE 10 MG PO (07:53)
[2023-12-11] MEDS: KCL 40 MEQ PO (07:53)
--- NOTE | 2023-12-11 07:55 | CON.VAS ---
Consultation
Consultation Request
Date/Time Consultation Requested: 12/11/23
Reason for Consultation: leg swelling
Medical History
-
Chief Complaint: bilateral lower extremity pain/legswelling
History of Present Illness:
this is a 68-year-old male with uncontrolled atrial fibrillation, hypertension, hyperlipidemia, heart failure. He presents with significant bilateral lower extremity leg swelling, coolness and discoloration. On exam this morning, he states his
legs are significantly less swollen and the color is improved. He no longer has pain. On exam, he has evidence of chronic venous changes. I reviewed his ankle-brachial index which demonstrates adequate perfusion for wound healing. He is lifting
his legs on his recliner today.
Past Medical History
Past Medical History: CAD, CHF, HTN and Hypercholesterolemia
Allergies / Home Medications
Allergy/AdvReac Type Severity Reaction Status Date / Time
lobster Allergy Anaphylaxis Verified 12/09/23 16:49
Penicillins Allergy Unknown - Verified 12/09/23 10:03
Tolerates
ceftriaxone
�Medication �Instructions �Recorded �Confirmed �Type
apixaban 5 mg tablet (Eliquis) 5 mg PO BID Blood Clot 12/09/23 12/09/23 History
Prevention/Tx
sennosides 8.6 mg tablet (Senokot) 8.6 mg PO DAILY PRN constipation 12/09/23 12/09/23 History
Physical Exam
Vital Signs
Temp Pulse Resp BP Pulse Ox
98.1 F 97 18 105/77 97
12/11/23 03:20 12/11/23 07:00 12/11/23 03:20 12/11/23 06:49 12/11/23 03:20
Lab Results
12/11/23 05:07
12/11/23 05:07
Troponin I 0.031 ng/ml 12/09/23 10:43
Zmc-K-Lhiopqzslkj Pept 84738 pg/ml 12/09/23 10:43
Physical Exam
General: Well Developed and Well Nourished
HEENT: Normocephalic
Respiratory: Clear
Cardiac: S1/S2
GI: Soft
Skin: Warm
Neuro: Awake and AO x 3
Hematologic/Lymphatic: Other (Bilateral lower extremity leg swelling)
Pulses: Bilateral Femoral: +2
Assessment / Plan
-
68-year-old male with uncontrolled heart failure and atrial fibrillation presents with bilateral lower extremity leg swelling. Review of his noninvasive vascular imaging demonstrates adequate perfusion for wound healing. At this time we recommend
continued medical management of his CHF. The patient also has evidence of chronic venous changes. Please provide an Cedrick wrap for the patient from the toes to the thighs. Continue to keep legs elevated.
--- NOTE | 2023-12-11 08:28 | W.PN.CD ---
Addendum entered and electronically signed by Valente Rowe MD 12/11/23 09:18:
I saw and examined the patient.
The AUTOMOTIVE HARDWARE ENGINEER's note was reviewed and I agree with the note.
Comment: I saw and examined the patient.
The AUTOMOTIVE HARDWARE ENGINEER's note was reviewed and I agree with the note.
Overall patient feeling better. Edema decreasing still with significant edema on exam. Importance of medications reviewed with the patient. Previously patient with noncompliance.
Patient with continued diuresis and downward trend of weights. Hypokalemia being addressed by hospitalist.
Monitor potassium closely with diuresis.
Continue to follow weights and renal function.
A-fib rate control with beta-tiffany and digoxin. Mild elevation in low 100s will continue to monitor with additional digoxin administration
Original Note:
Today's Communication / Plan
-
Mg and KCL being replaced
IV diuresis
GDMT limited by low/to low normal BP's
Impression / Plan
-
68 y/o male with NICM (previous EF 45%), persistent AFIB (on Eliquis), hx ETOH use (no longer drinks), Tobacco use (no longer smokes), cirrhosis, COPD, GERD referred for evaluation from Dr. Arzola's office. He has had worsened LE edema over the
past few weeks. Occasional SOB, but that is not a main complaint. He has been taking Eliquis for OAC, but stopped all of his other medicines (unclear timeline, but dig and lasix seem to be recent, and metoprolol was a while ago). He didn't think
they were helping, and he has been noncompliant with Cardiology follow-up--last seen in the office 1 year ago. O2 sat in [facility] office was 89% and he is on O2 by [place] now. AFIB with RVR noted on arrival. He was seen in our office 12/07/22 and did not
follow up since he was feeling fine. He hasn't been checking weights.
Ilcqp-xw-dqdqlri HFrEF (EF 30-35%):
-Patient with a decline in LVEF on echocardiogram this admit , now 30-35% (previously 45% 1 year ago), severe biatrial enlargement, severe mitral regurgitation, and moderate to severe tricuspid regurgitation; due to medication/medical noncompliance.
-Continue Lasix 20 mg IV BID. Replace Mg and KCL . Down about 6 kg. Todays weight up but will re- weigh
-On Toprol-XL 25 mg daily and Jardiance 10 mg daily; further GDMT ( JOBY/ARB/ARNi/MRA) limited by low blood pressure.
-Prior notes indicate poor candidate for ICD due to medical noncompliance.
AFIB with RVR: persistent
-was on metoprolol and digoxin, but stopped both,
-toprol and digoxin restarted this admit. Check digoxin level next week
-Continue Eliquis for OAC.
Valvular heart disease:
-Severe MR and moderate to severe TR noted on echocardiogram yesterday.
-Conservative cardiac management overall; Per previous notes poor candidate for any aggressive measures.
Hyponatremia:
-Continue to monitor with IV lasix.
COPD, suspected:
-needs pulm follow-up
-no longer smoking
Constipation, GERD, cirrhosis:
-Management as per primary
Subjective:
Pt states overall feeling better . SOB less. Edema less
Denies CP.
Physical Exam
Vital Signs/Labs
Vital Signs
Temp Pulse Resp BP Pulse Ox
97.9 F 97 16 105/77 97
12/11/23 07:00 12/11/23 07:00 12/11/23 07:00 12/11/23 06:49 12/11/23 07:00
12/10/23 12/11/23 12/12/23
06:59 06:59 06:59
Actual Weight 63.7 kg 67.9 kg
12/11/23 05:07
12/11/23 05:07
PT 26.0 Sec (11.4-14.6) H 12/09/23 10:43
INR 2.35 12/09/23 10:43
Magnesium 1.6 mg/dl (1.6-2.3) 12/11/23 05:07
Free T4 1.27 ng/dl (0.78-2.19) 12/10/23 03:41
12/09/23
10:43
Ywy-M-Pghfklfevrw Pept [id number]
LAB Results
12/09/23
10:43
Troponin I 0.031
Physical Exam
Constitutional: No acute distress
Cardiovascular: Rhythm/rate is irregular (mild tachy)
Respiratory: Respiratory effort normal and Lungs clear to auscul. (decreased throughout)
Neuro/Psych: AO x 3
Data Reviewed
-
Date of Service: December 11, 2023
EKG: Other (tele; AF 100's )
Labs: Labs Reviewed by me
[2023-12-11] MEDS: LASIX IV ×2 (09:45→16:46)
[2023-12-11] MEDS: LANOXIN 125 MCG PO (11:00)
--- NOTE | 2023-12-11 11:10 | PTCARENOTE ---
The patient's BPs were 85/70 on the right arm and 84/66 on the left arm. His HR was 108 at the time and remains in afib. The patient is asymptomatic. Dr. Rowe was notified.
[2023-12-11] MEDS: MAGNESIUM SULFATE 50 IV (12:01)
--- NOTE | 2023-12-11 16:46 | PTCARENOTE ---
BP 91/68, HR 113, held 1600 dose of Lasix.
--- NOTE | 2023-12-11 18:30 | PTCARENOTE ---
While eating his dinner, the patient's HR increased to the 140's. Afib showing on the monitor. He has no complaints of palpations or SOB. BP 102/74, pulse Ox 96% on RA. Notified Dr. Rowe.
[2023-12-11] MEDS: SENOKOT-S 1 TABLET PO (19:40)
[2023-12-12] VITALS (8 sets, daily range): BP systolic 93–105; BP diastolic 63–89; PULSE 122; BMI 20.8
--- NOTE | 2023-12-12 00:40 | PTCARENOTE ---
Assumed care of patient at change of shift. Tele monitor shows Afib, HR in the 90-120s at rest. Pt asymptomatic, and denies any palpitations. Patient requires standby assist and uses RW when ambulating. HR up to 130-140s w/ ambulation. Hygiene care
completed earlier by PCT, and linens changed. Patient c/o b/l ankle discomfort, Tylenol administered--see MAR for details. Aware of POC, call ignacio in reach.
[2023-12-12 04:19] LABS: Hematocrit 39.8 % (39.0-52.0); Hemoglobin 12.9 g/dL (13.0-18.0); Mean Corp Hgb Conc. 32.4 g/dL (33.0-37.0); Mean Corpuscular Hgb 29.4 pg (27.0-31.0); Mean Corpuscular Volume 90.7 fL (80.0-94.0); Mean Platelet Volume 10.2 fL (7.4-10.4); Platelet Count 133 10^3/uL (130-400); Red Blood Cell Count 4.39 10^6/uL (4.70-6.10); Red Cell Dist. Width 19.2 % (11.5-14.5); White Blood Cell Count 5.5 10^3/uL (4.8-10.8)
[2023-12-12 04:46] LABS: Blood Urea Nitrogen 41 mg/dl (9-20); Calcium 8.4 mg/dl (8.4-10.2); Carbon Dioxide 29 mmol/L (22-30); Chloride 100 mmol/L (98-107); Estimated Creatinine Clearance 87 ml/min; Glucose 79 mg/dl (70-99); Magnesium 2.1 mg/dl (1.6-2.3); Phosphorus 2.2 mg/dl (2.5-4.5); Sodium 133 mmol/L (135-145); eGFR > 60.00
--- NOTE | 2023-12-12 06:36 | W.PN.HOSP.TC ---
Today's Communication/Plan
-
heart failure GDMT, diuresis, digoxin as per cardio
PT/OT
pain control
Monitor and replete electrolytes as necessary
daily weight I/O
Assessment / Plan
Assessment / Plan
Physical Exam
General: No pallor, cyanosis, or jaundice. Appears Chronically Ill Cachectic appearing thoracic upper body
HEENT: Throat clear. PERRLA Normocephalic atraumatic
NECK: Supple. No JVD Carotid Bruits
RESPIRATORY: Lungs clear to auscultation. No crackles wheezes stridor
CVS: S1, S2 normal. RRR. No murmur, rub or gallop.
ABDOMEN: Soft, non-tender. No distension. BS+/normal.
EXTREMITIES: Lower ext's +2 pitting edema b/l
CERTIFIED WELLNESS PROGRAM COORDINATOR: AOx3
IMPRESSION:
68 male atrial fibrillation CHF COPD pulm hypertension former smoker alcohol use referred to ED for evaluation by air drill operator following outpatient appointment noted concerns for acute hypoxic respiratory failure swelling lower extremities. Found
to be in A-fib RVR in the ED. Since improved on diltiazem gtt. Poor historian, noncompliant with his medications. Reports having self discontinued some of his medications due to feeling improved-did not feel that he required them anymore.
Reports compliance with Eliquis however. Denies chest pain palpitations fevers chills nausea vomiting diarrhea. Reports chronic intermittent constipation. Saturating low 90s on 2 L heart rate controlled and blood pressure stable on diltiazem gtt,
as prescribed by ED. Labs notable for hyponatremia 126 BNP 23,200 no kidney dysfunction insufficiency noted. Chest x-ray appreciated no active cardiopulmonary disease
PLAN:
#Acute on chronic HFmrEF
#A-fib RVR
#Acute hypoxic respiratory failure
IVU admit
Continue diltiazem gtt.
IV Lasix 20 twice daily (low pressures limiting diuresis)
ECHO appreciated EF 30-35% severe MR
Cardio eval appreciated re-initiated Toprol-XL 25 mg daily and Jardiance 10 mg daily (cont), cardizem gtt discontinued and digoxin restarted (cont)
Daily weight I/O
Continue Eliquis
PT/OT eval appreciated Home Health
Weaned off O2 supplementation
#LLE pain suspect d/t PAD
#B/L Lower ext PAD noted on arterial study VITALIY
Vascular eval appreciated adequate perfusion, no acute intervention necessary at this time, cont conservative mgmt
-Cedrick wrap for the patient from the toes to the thighs. Continue to keep legs elevated.
pain control Tylenol mild pain, oxycodone mod severe pain, morphine severe breakthrough pain
PT/OT as above
Feet XR appreciated
-No acute fractures or dislocations.
-Mild to moderate degenerative changes within both first metatarsophalangeal joints.
-Nonspecific geographic area of osteopenia within the RIGHT fifth metatarsal head. No definitive erosion appreciated.
-Significant dorsal soft tissue edema within both feet.
#Hyponatremia
Fluid restriction
since improved from mid 120s to low 130s
#Hypokalemia
#potassium goal 4
monitor and replete as necessary
K 20 meQ Daily
Magnesium goal 2
monitor and replete as necessary
Hypophosphatemia
neutra-phos supplementation for today ordered 12/11
monitor and replete as necessary
#COPD
#Pulm hypertension
No wheezing noted
wean O2 supplementation as tolerated
Xopenex as needed, avoiding albuterol due to tachycardia as above
#Cachectic appearing thoracic upper body, bony promninence ribs noted
suspect malnutrition
dietary eval appreciated
cont nutrition supplement
DVT prophylaxis Eliquis
GI prophylaxis Protonix
Full code
I spent a total of 56 minutes with the patient or on the floor. More than 50% of this time involved counseling and coordination of care.
Anticipated Discharge: 24 - 48 hours
Subjective/Interval History
-
Date of Service: December 12, 2023
No acute distress sitting up comfortably in bed. Reports overall feeling well. Denies new acute issues at this time.
Objective Data
-
Labs:
Laboratory Results
12/12/23
03:55
WBC 5.5
Hgb 12.9 L
Hct 39.8
Plt Count 133
Sodium 133 L
Potassium 4.0 D
Chloride 100
Carbon Dioxide 29
BUN 41 H
Creatinine 0.8
Glucose 79
Calcium 8.4
Vital Signs:
Vital Signs
Temp Pulse Resp BP Pulse Ox
97.6 F 111 18 100/81 100
12/12/23 03:50 12/12/23 06:00 12/12/23 03:50 12/12/23 03:49 12/12/23 03:50
I&O
12/10/23 12/11/23 12/12/23
06:59 06:59 06:59
Intake Total 240 / 240 420 / 420 1220 / 1220
Output Total 2600 / 2600 1575 / 1575 850 / 850
Balance -2360 / -2360 -1155 / -1155 370 / 370
[2023-12-12] MEDS: TYLENOL 650 MG PO ×3 (07:51→19:11)
[2023-12-12] MEDS: JARDIANCE 10 MG PO (07:51)
[2023-12-12] MEDS: ELIQUIS 5 MG PO ×2 (07:51→19:19)
[2023-12-12] MEDS: PROTONIX 40 MG PO (07:51)
[2023-12-12] MEDS: TOPROL XL 25 MG PO (07:52)
[2023-12-12] MEDS: LASIX 20 MG IV ×2 (07:52→16:32)
[2023-12-12] MEDS: FLUSH (NSS) 2 FLUSH IV ×2 (07:53→16:32)
[2023-12-12] MEDS: KCL 20 MEQ PO (08:51)
[2023-12-12] MEDS: NEUTRA-PHOS POWDER PACKET 250 MG PO ×4 (09:20→22:57)
--- NOTE | 2023-12-12 09:57 | W.PN.CD ---
Today's Communication / Plan
-
Patient overall says he feels well no complaints of shortness of breath. Still with significant edema on exam
patient has had relatively low blood pressures which are limiting additional rate control meds and are impacting rate of diuresis.
Continue metoprolol
Continue digoxin. Will review with pharmacy how much digoxin patient's received this admission does not appear that he had an initial load.
Continue diuresis with Lasix and monitor renal function.
Additional labs including LFTs and albumin added on. Will await results.
Impression / Plan
-
68 y/o male with NICM (previous EF 45%), persistent AFIB (on Eliquis), hx ETOH use (no longer drinks), Tobacco use (no longer smokes), cirrhosis, COPD, GERD referred for evaluation from Dr. Arzola's office. He has had worsened LE edema over the
past few weeks. Occasional SOB, but that is not a main complaint. He has been taking Eliquis for OAC, but stopped all of his other medicines (unclear timeline, but dig and lasix seem to be recent, and metoprolol was a while ago). He didn't think
they were helping, and he has been noncompliant with Cardiology follow-up--last seen in the office 1 year ago. O2 sat in pul office was 89% and he is on O2 by [place] now. AFIB with RVR noted on arrival. He was seen in our office 12/07/22 and did not
follow up since he was feeling fine. He hasn't been checking weights.
Mndcw-ng-kpqguth HFrEF (EF 30-35%):
-Patient with a decline in LVEF on echocardiogram this admit , now 30-35% (previously 45% 1 year ago), severe biatrial enlargement, severe mitral regurgitation, and moderate to severe tricuspid regurgitation; due to medication/medical noncompliance.
-Continue Lasix 20 mg IV BID. Replace Mg and KCL . Down about 6 kg. Todays weight up but will re- weigh
-On Toprol-XL 25 mg daily and Jardiance 10 mg daily; further GDMT ( JOBY/ARB/ARNi/MRA) limited by low blood pressure.
-Prior notes indicate poor candidate for ICD due to medical noncompliance.
AFIB with RVR: persistent
-was on metoprolol and digoxin, but stopped both,
-toprol and digoxin restarted this admit. Check digoxin level next week
-Continue Eliquis for OAC.
Valvular heart disease:
-Severe MR and moderate to severe TR noted on echocardiogram yesterday.
-Conservative cardiac management overall; Per previous notes poor candidate for any aggressive measures.
Hyponatremia:
-Continue to monitor with IV lasix.
COPD, suspected:
-needs pulm follow-up
-no longer smoking
Constipation, GERD, cirrhosis:
-Management as per primary
Subjective:
Pt states overall feeling better . SOB less. Edema less
Denies CP.
Physical Exam
Vital Signs/Labs
Vital Signs
Temp Pulse Resp BP Pulse Ox
98.2 F 123 16 103/89 98
12/12/23 07:52 12/12/23 07:52 12/12/23 07:52 12/12/23 07:52 12/12/23 07:52
12/11/23 12/12/23 12/13/23
06:59 06:59 06:59
Actual Weight 67.9 kg 69.6 kg
12/12/23 03:55
12/12/23 03:55
PT 26.0 Sec (11.4-14.6) H 12/09/23 10:43
INR 2.35 12/09/23 10:43
Magnesium 2.1 mg/dl (1.6-2.3) 12/12/23 03:55
Free T4 1.27 ng/dl (0.78-2.19) 12/10/23 03:41
12/09/23
10:43
Qpm-I-Wxakcuiexdw Pept [id number]
LAB Results
12/09/23
10:43
Troponin I 0.031
Physical Exam
Constitutional: No acute distress
Cardiovascular: Rhythm & rate is regular and Rhythm/rate is irregular
Respiratory: Respiratory effort normal
GI: Soft, Non tender and Normal bowel sounds
Other: Other (Marked bilateral lower extremity edema)
Data Reviewed
-
Date of Service: December 12, 2023
Medical Decision Making: Reviewed Test Results
EKG: Report Reviewed by me
X-Ray/CT/US/MRI/NUC/PET: Report Reviewed by me
Medical Tests (PFT, Pathology etc): Report Reviewed by me
Labs: Labs Reviewed by me
[2023-12-12] MEDS: LANOXIN 125 MCG PO ×2 (10:15→12:15)
[2023-12-12 10:35] LABS: ALT (SGPT) 41 U/L (0-50); AST (SGOT) 70 U/L (17-59); Albumin 2.4 g/dl (3.5-5.0); Alkaline Phosphatase 162 U/L (38-126); Direct Bilirubin 1.1 mg/dl (0.0-0.4); Total Bilirubin 1.7 mg/dl (0.2-1.3); Total Protein 5.5 g/dl (6.3-8.2)
--- NOTE | 2023-12-12 11:31 | PTCARENOTE ---
The patient's HR was alarming in the 160s (in afib). I found the patient in the BR. He stated that he didn't ring the call ignacio because he thought he was going to have an accident. 'I was afraid it would have been all over.' I assisted him back to
the bed x 1 with a RW. I instructed the patient to use the call ignacio and wait for assistance before getting oob given that he is a fall risk. He stated that he would. The patient's HR decreased to 123 while at rest in the bed.
[2023-12-13 04:40] VITALS: BP 115/80
[2023-12-13 05:20] LABS: Hematocrit 40.7 % (39.0-52.0); Hemoglobin 13.2 g/dL (13.0-18.0); Mean Corp Hgb Conc. 32.4 g/dL (33.0-37.0); Mean Corpuscular Hgb 29.3 pg (27.0-31.0); Mean Corpuscular Volume 90.4 fL (80.0-94.0); Mean Platelet Volume 10.7 fL (7.4-10.4); Platelet Count 132 10^3/uL (130-400); Red Cell Dist. Width 19.2 % (11.5-14.5)
[2023-12-13 05:58] VITALS: BMI 20.5
[2023-12-13 05:58] LABS: Blood Urea Nitrogen 40 mg/dl (9-20); Calcium 7.9 mg/dl (8.4-10.2); Carbon Dioxide 32 mmol/L (22-30); Chloride 101 mmol/L (98-107); Estimated Creatinine Clearance 99 ml/min; Glucose 78 mg/dl (70-99); Magnesium 1.8 mg/dl (1.6-2.3); Phosphorus 2.6 mg/dl (2.5-4.5); Potassium 4.3 mmol/L (3.5-5.1); Sodium 136 mmol/L (135-145); eGFR > 60.00
[2023-12-13] MEDS: TYLENOL 650 MG PO ×2 (05:59→15:21)
[2023-12-13 07:04] VITALS: BP 113/74
[2023-12-13] MEDS: TOPROL XL 25 MG PO (08:33)
[2023-12-13] MEDS: JARDIANCE 10 MG PO (08:33)
[2023-12-13] MEDS: ELIQUIS 5 MG PO ×2 (08:33→20:44)
[2023-12-13] MEDS: KCL 20 MEQ PO (08:34)
[2023-12-13] MEDS: PROTONIX 40 MG PO (08:34)
[2023-12-13] MEDS: LASIX 20 MG IV ×2 (08:34→15:25)
--- NOTE | 2023-12-13 08:55 | W.PN.CD ---
Today's Communication / Plan
-
Patient continues with diuresis there is been some fluctuation in weights which raises questions of accuracy. I's and O's -1500 over the last 24 hours. Patient still with significant edema. Continue diuresis.
Continue efforts to rate control.remains a challenge due to lower BP. Hopefully better control with additional digoxin.
Impression / Plan
-
68 y/o male with NICM (previous EF 45%), persistent AFIB (on Eliquis), hx ETOH use (no longer drinks), Tobacco use (no longer smokes), cirrhosis, COPD, GERD referred for evaluation from Dr. Arzola's office. He has had worsened LE edema over the
past few weeks. Occasional SOB, but that is not a main complaint. He has been taking Eliquis for OAC, but stopped all of his other medicines (unclear timeline, but dig and lasix seem to be recent, and metoprolol was a while ago). He didn't think
they were helping, and he has been noncompliant with Cardiology follow-up--last seen in the office 1 year ago. O2 sat in pul office was 89% and he is on O2 by [place] now. AFIB with RVR noted on arrival. He was seen in our office 12/07/22 and did not
follow up since he was feeling fine. He hasn't been checking weights.
Qfprc-go-ygxdkao HFrEF (EF 30-35%):
-Patient with a decline in LVEF on echocardiogram this admit , now 30-35% (previously 45% 1 year ago), severe biatrial enlargement, severe mitral regurgitation, and moderate to severe tricuspid regurgitation; due to medication/medical noncompliance.
-Continue Lasix 20 mg IV BID. Replace Mg and KCL . Down about 6 kg. Todays weight up but will re- weigh
-On Toprol-XL 25 mg daily and Jardiance 10 mg daily; further GDMT ( JOBY/ARB/ARNi/MRA) limited by low blood pressure.
-Prior notes indicate poor candidate for ICD due to medical noncompliance.
AFIB with RVR: persistent. Meds limited by blood pressure. Patient is now on digoxin. Will see if further reduction and rates with additional digoxin.
-was on metoprolol and digoxin, but stopped both,
-toprol and digoxin restarted this admit. Check digoxin level next week
-Continue Eliquis for OAC.
-Although amiodarone could be considered for additional rate control and even rhythm control. Patient has prior history of alcohol use and suspected cirrhosis. Reportedly the patient no longer drinks.
Valvular heart disease:
-Severe MR and moderate to severe TR noted on echocardiogram yesterday.
-Conservative cardiac management overall; Per previous notes poor candidate for any aggressive measures.
Hyponatremia:
-Continue to monitor with IV lasix.
COPD, suspected:
-needs pulm follow-up
-no longer smoking
Constipation, GERD, cirrhosis:
-Management as per primary
Subjective:
Pt states overall feeling better . SOB less. Edema less
Denies CP.
Physical Exam
Vital Signs/Labs
Vital Signs
Temp Pulse Resp BP Pulse Ox
97.6 F 119 20 115/80 98
12/13/23 07:02 12/13/23 05:00 12/13/23 07:02 12/13/23 04:40 12/13/23 07:02
12/12/23 12/13/23 12/14/23
06:59 06:59 06:59
Actual Weight 69.6 kg 68.6 kg
12/13/23 04:52
12/13/23 04:52
PT 26.0 Sec (11.4-14.6) H 12/09/23 10:43
INR 2.35 12/09/23 10:43
Magnesium 1.8 mg/dl (1.6-2.3) 12/13/23 04:52
Free T4 1.27 ng/dl (0.78-2.19) 12/10/23 03:41
12/09/23
10:43
Yrk-I-Vtbwosifxbr Pept [id number]
Physical Exam
Constitutional: No acute distress
Cardiovascular: Rhythm/rate is irregular
Respiratory: Respiratory effort normal
GI: Soft and Non tender
Neuro/Psych: Alert and Oriented
Data Reviewed
-
Date of Service: December 13, 2023
Medical Decision Making: Reviewed Test Results
EKG: Report Reviewed by me
Echo: Report Reviewed by me
X-Ray/CT/US/MRI/NUC/PET: Report Reviewed by me
Medical Tests (PFT, Pathology etc): Report Reviewed by me
Labs: Labs Reviewed by me
--- NOTE | 2023-12-13 11:13 | SUR.OPER ---
Pt encouraged to get OOB to chair this morning but he refused saying the chair is too small for his legs. Pt encouraged to turna nd change position while in bed. He did walk in the room with rolling walker.
--- NOTE | 2023-12-13 12:14 | CM ---
Chart reviewed. Patient is independent of ADLS, lives alone in a 1st floor apartment with a supportive girlfriend who also helps with the patient, 0 DME, 0 BOB. Patient has been using a rolling walker here and does not have one at home. Patient
will need a script for a rolling walker. Patient with less swelling and pain in b/l LE. PT evaluation recommending VN. Patient is refusing VN and Home PT. Patient said he lives in a small apartment and there is not enough room. Plan is for the
patient to return home once medically stable. CM to follow
[2023-12-13] MEDS: LANOXIN 250 MCG PO (12:20)
[2023-12-13 12:42] VITALS: BP 128/85
--- NOTE | 2023-12-13 14:52 | W.PN.HOSP.TC ---
Today's Communication/Plan
-
IV diuresis
Monitor A-fib rate control
Assessment / Plan
Assessment / Plan
IMPRESSION:
68 male atrial fibrillation CHF COPD pulm hypertension former smoker alcohol use referred to ED for evaluation by clinical unit educator following outpatient appointment noted concerns for acute hypoxic respiratory failure swelling lower extremities. Found
to be in A-fib RVR in the ED. Since improved on diltiazem gtt. Poor historian, noncompliant with his medications. Reports having self discontinued some of his medications due to feeling improved-did not feel that he required them anymore.
Reports compliance with Eliquis however. Denies chest pain palpitations fevers chills nausea vomiting diarrhea. Reports chronic intermittent constipation. Saturating low 90s on 2 L heart rate controlled and blood pressure stable on diltiazem gtt,
as prescribed by ED. Labs notable for hyponatremia 126 BNP 23,200 no kidney dysfunction insufficiency noted. Chest x-ray appreciated no active cardiopulmonary disease
Acute CHF reduced EF 30-35%.
Valvular disease with, severe mitral regurgitation and severe tricuspid regurgitation.
Atrial fibrillation, chronic with rapid ventricular response.
Hypervolemic hyponatremia.
Cirrhosis, possibly cardiogenic
COPD.
GERD.
PLAN:
Acute CHF reduced EF.
Valvular disease with severe mitral regurgitation and tricuspid regurgitation.
Echo: Normal left ventricular chamber size and wall thickness with severe, global
hypokinesis with preserved function of the basal inferiolateral wall with
moderate/severely reduced left ventricular systolic function. Left ventricular
ejection fraction is 30-35%. by volumetric assessment. Diastolic function
indeterminate due to atrial fibrillation.
Top normal right ventricular size with reduced right ventricular systolic
function.
Severe biatrial dilation.
Severe mitral regurgitation.
Thickened aortic valve with normal leaflet excursion.
Small pericardial effusion. Pleural effusion present.
The IVC is moderately dilated and does not collapse. Right atrial pressure
estimated at 15 mmHg.
Top normal pulmonary pressure. PASP estimated at 38 mmHg.
Continue IV diuresis: Lasix 20 mg IV twice daily.
Follow daily weights.
Follow renal function
Persistent atrial fibrillation
Rapid ventricular response.
Off IV Cardizem.
Continue metoprolol XL 25 mg daily. Reinstated on digoxin 250 mcg daily. Follow level
Anticoagulation with Eliquis
#LLE pain suspect d/t PAD
#B/L Lower ext PAD noted on arterial study VITALIY
Vascular eval appreciated adequate perfusion, no acute intervention necessary at this time, cont conservative mgmt
-Cedrick wrap for the patient from the toes to the thighs. Continue to keep legs elevated.
pain control Tylenol mild pain, oxycodone mod severe pain, morphine severe breakthrough pain
PT/OT as above
Feet XR appreciated
-No acute fractures or dislocations.
-Mild to moderate degenerative changes within both first metatarsophalangeal joints.
-Nonspecific geographic area of osteopenia within the RIGHT fifth metatarsal head. No definitive erosion appreciated.
-Significant dorsal soft tissue edema within both feet.
#Hyponatremia
Fluid restriction
since improved from mid 120s to low 130s
#Hypokalemia
#potassium goal 4
monitor and replete as necessary
K 20 meQ Daily
Magnesium goal 2
monitor and replete as necessary
Hypophosphatemia
neutra-phos supplementation for today ordered 12/11
monitor and replete as necessary
#COPD
#Pulm hypertension
No wheezing noted
wean O2 supplementation as tolerated
Xopenex as needed, avoiding albuterol due to tachycardia as above
#Cachectic appearing thoracic upper body, bony promninence ribs noted
suspect malnutrition
dietary eval appreciated
cont nutrition supplement
DVT prophylaxis Eliquis
GI prophylaxis Protonix
Full code
Anticipated Discharge: 24 - 48 hours
Subjective/Interval History
-
Date of Service: December 13, 2023
Objective Data
-
Labs:
Laboratory Results
12/13/23
04:52
WBC 6.0
Hgb 13.2
Hct 40.7
Plt Count 132
Sodium 136
Potassium 4.3
Chloride 101
Carbon Dioxide 32 H
BUN 40 H
Creatinine 0.7
Glucose 78
Calcium 7.9 L
Vital Signs:
Vital Signs
Temp Pulse Resp BP Pulse Ox
97.6 F 110 20 128/85 99
12/13/23 12:43 12/13/23 12:42 12/13/23 12:43 12/13/23 12:42 12/13/23 12:43
I&O
12/12/23 12/13/23 12/14/23
06:59 06:59 06:59
Intake Total 1220 / 1220 1320 / 1320
Output Total 850 / 850 2775 / 2775 800 / 800
Balance 370 / 370 -1455 / -1455 -800 / -800
Physical Exam
-
General: Well Developed and No Apparent Distress
HEENT: Normocephalic, Atraumatic and Moist Mucous Membranes
Respiratory: Clear to Auscultation
Cardiac: Regular Rhythm and S1/S2; Negative Murmur, Rub or Gallop
GI: Soft, Nontender, Nondistended and Normal Bowel Sounds; Negative Organomegaly
Rectal: Deferred by Provider
Musculoskeletal: No Clubbing, No Cyanosis and No Edema
Skin: Negative Rash
Neuro: Nonfocal/Grossly Intact
[2023-12-13 16:35] VITALS: BP 119/83
[2023-12-13 18:31] VITALS: BP 111/79
--- NOTE | 2023-12-13 20:13 | PTCARENOTE ---
Assumed care. Patient returning from the bathroom using his rolling walker. A-FIB HR 120-140's with activity. B/L +3 pedal edema +3 and +2 b/l leg edema. Lotion applied to legs. Skin red with some purple dry scabs, feet are dry and flakey. Sitting
in the chair, call ignacio in reach
[2023-12-13 22:49] VITALS: BP 112/85
[2023-12-14] VITALS (9 sets, daily range): BP systolic 113–129; BP diastolic 63–88; PULSE 99–133; BMI 20.1
[2023-12-14 04:25] LABS: Hematocrit 41.2 % (39.0-52.0); Hemoglobin 13.9 g/dL (13.0-18.0); Mean Corp Hgb Conc. 33.7 g/dL (33.0-37.0); Mean Platelet Volume 9.8 fL (7.4-10.4); Platelet Count 147 10^3/uL (130-400); Red Blood Cell Count 4.48 10^6/uL (4.70-6.10); Red Cell Dist. Width 18.8 % (11.5-14.5); White Blood Cell Count 5.5 10^3/uL (4.8-10.8)
[2023-12-14 04:49] LABS: Blood Urea Nitrogen 43 mg/dl (9-20); Carbon Dioxide 33 mmol/L (22-30); Chloride 101 mmol/L (98-107); Digoxin 0.6 ng/ml (0.8-2.0); Estimated Creatinine Clearance 98 ml/min; Glucose 84 mg/dl (70-99); Magnesium 1.7 mg/dl (1.6-2.3); Phosphorus 2.7 mg/dl (2.5-4.5); Potassium 3.9 mmol/L (3.5-5.1); Sodium 136 mmol/L (135-145); eGFR > 60.00
[2023-12-14] MEDS: TYLENOL 650 MG PO ×2 (06:11→21:50)
--- NOTE | 2023-12-14 07:59 | W.PN.CD ---
Today's Communication / Plan
-
-Continue Lasix 20 mg IV BID.
-Continue Toprol-XL 25--will increase to 25 mg BID to try to improve heart rate control.
-Will try to increase digoxin load by giving 250 mcg IV this a.m.; continue standing noon dose of 250 mcg daily.
Impression / Plan
-
68 y/o male with NICM (previous EF 45%), persistent AFIB (on Eliquis), hx ETOH use (no longer drinks), Tobacco use (no longer smokes), cirrhosis, COPD, GERD referred for evaluation from Dr. Arzola's office. He has had worsened LE edema over the
past few weeks. Occasional SOB, but that is not a main complaint. He has been taking Eliquis for OAC, but stopped all of his other medicines (unclear timeline, but dig and lasix seem to be recent, and metoprolol was a while ago). He didn't think
they were helping, and he has been noncompliant with Cardiology follow-up--last seen in the office 1 year ago. O2 sat in pul office was 89% and he is on O2 by [place] now. AFIB with RVR noted on arrival. He was seen in our office 12/07/22 and did not
follow up since he was feeling fine. He hasn't been checking weights.
Tkkhs-sd-hlikxka HFrEF (EF 30-35%):
-Patient with a decline in LVEF on echocardiogram this admit , now 30-35% (previously 45% 1 year ago), severe biatrial enlargement, severe mitral regurgitation, and moderate to severe tricuspid regurgitation; due to medication/medical noncompliance.
-Continue Lasix 20 mg IV BID.
-Continue Toprol-XL 25--will increase to 25 mg BID to try to improve heart rate control.
-Continue Jardiance 10 mg daily; further GDMT ( JOBY/ARB/ARNi/MRA) limited by low blood pressure.
-Poor candidate for ICD due to medical noncompliance.
AFIB with RVR: persistent; meds limited by blood pressure.
-Will try to increase digoxin load by giving 250 mcg IV this a.m.; continue standing noon dose of 250 mcg daily.
-Will increase Toprol-XL as above.
-Of note, patient was on metoprolol and digoxin, but stopped both several months ago; did not follow-up with Cardiology as recommended (last seen 1 year ago).
-Continue Eliquis for OAC.
-Avoiding amiodarone due to cirrhosis (likely secondary to previous alcohol use); reportedly the patient no longer drinks.
Valvular heart disease:
-Severe MR and moderate to severe TR noted on echocardiogram.
-Conservative cardiac management overall with diuretic management; poor candidate for any aggressive measures.
Hyponatremia:
-Resolved.
COPD, suspected:
-needs pulm follow-up
-no longer smoking
Constipation, GERD, cirrhosis:
-Management as per primary
Subjective:
No major events overnight; no cardiac complaints. Still with suboptimal heart rate control.
Physical Exam
Vital Signs/Labs
Vital Signs
Temp Pulse Resp BP Pulse Ox
97.6 F 112 18 123/88 98
12/14/23 07:49 12/14/23 07:49 12/14/23 07:49 12/14/23 03:49 12/14/23 07:49
12/13/23 12/14/23 12/15/23
06:59 06:59 06:59
Actual Weight 68.6 kg 67 kg
12/14/23 04:01
12/14/23 04:01
PT 26.0 Sec (11.4-14.6) H 12/09/23 10:43
INR 2.35 12/09/23 10:43
Magnesium 1.7 mg/dl (1.6-2.3) 12/14/23 04:01
Free T4 1.27 ng/dl (0.78-2.19) 12/10/23 03:41
Digoxin Cancelled 12/14/23 08:42
12/09/23
10:43
Mlq-I-Tjozyzofams Pept [id number]
Physical Exam
Constitutional: No acute distress and Comfortable
EENT: Anicteric
Cardiovascular: Rhythm/rate is irregular, Pedal edema present (2+ bilateral pitting), Systolic murmur present (Soft 2/6) and S1S2 is normal
Respiratory: Respiratory effort normal and Lungs clear to auscul.
GI: Soft
Neuro/Psych: AO x 3
Other: Skin (Warm, dry)
Data Reviewed
-
Date of Service: December 14, 2023
EKG: Tracing Personally Visualized and interpreted (Telemetry: A-fib with RVR)
Echo: Report Reviewed by me (EF 30-35%, severe MR, moderate to severe TR)
Medical Tests (PFT, Pathology etc): Discussed with Patient
Labs: Labs Reviewed by me
[2023-12-14] MEDS: ELIQUIS 5 MG PO ×2 (08:10→19:54)
[2023-12-14] MEDS: TOPROL XL 25 MG PO ×2 (08:11→19:54)
[2023-12-14] MEDS: JARDIANCE 10 MG PO (08:11)
[2023-12-14] MEDS: LASIX 20 MG IV ×2 (08:11→17:17)
[2023-12-14] MEDS: KCL 20 MEQ PO (08:11)
[2023-12-14] MEDS: PROTONIX 40 MG PO (08:11)
[2023-12-14] MEDS: LANOXIN 250 MCG IV (08:12)
--- NOTE | 2023-12-14 11:28 | CM ---
Chart reviewed. Patient is independent of ADLS, lives alone in a 1st floor apartment, 0 BOB, 0 DME. Patient is refusing VN, saying he will be going to see his doctors. Patient has been using a rolling walker while here in the hospital and
doesn't have one at home. I asked Dr. Iverson for a script and I let PT know. Plan is for the patient to return home with a rolling walker. CM to follow
[2023-12-14] MEDS: LANOXIN 250 MCG PO (11:49)
--- NOTE | 2023-12-14 15:29 | W.PN.HOSP.TC ---
Today's Communication/Plan
-
Continue IV diuresis per
Adjust rate control medications.
Increase activity.
Physical therapy evaluation.
Assessment / Plan
Assessment / Plan
IMPRESSION:
68 male atrial fibrillation CHF COPD pulm hypertension former smoker alcohol use referred to ED for evaluation by career coach following outpatient appointment noted concerns for acute hypoxic respiratory failure swelling lower extremities. Found
to be in A-fib RVR in the ED. Since improved on diltiazem gtt. Poor historian, noncompliant with his medications. Reports having self discontinued some of his medications due to feeling improved-did not feel that he required them anymore.
Reports compliance with Eliquis however. Denies chest pain palpitations fevers chills nausea vomiting diarrhea. Reports chronic intermittent constipation. Saturating low 90s on 2 L heart rate controlled and blood pressure stable on diltiazem gtt,
as prescribed by ED. Labs notable for hyponatremia 126 BNP 23,200 no kidney dysfunction insufficiency noted. Chest x-ray appreciated no active cardiopulmonary disease
Acute CHF reduced EF 30-35%.
Valvular disease with, severe mitral regurgitation and severe tricuspid regurgitation.
Atrial fibrillation, chronic with rapid ventricular response.
Hypervolemic hyponatremia.
Cirrhosis, possibly cardiogenic
COPD.
GERD.
PLAN:
Acute CHF reduced EF.
Valvular disease with severe mitral regurgitation and tricuspid regurgitation.
Echo: Normal left ventricular chamber size and wall thickness with severe, global
hypokinesis with preserved function of the basal inferiolateral wall with
moderate/severely reduced left ventricular systolic function. Left ventricular
ejection fraction is 30-35%. by volumetric assessment. Diastolic function
indeterminate due to atrial fibrillation.
Top normal right ventricular size with reduced right ventricular systolic
function.
Severe biatrial dilation.
Severe mitral regurgitation.
Thickened aortic valve with normal leaflet excursion.
Small pericardial effusion. Pleural effusion present.
The IVC is moderately dilated and does not collapse. Right atrial pressure
estimated at 15 mmHg.
Top normal pulmonary pressure. PASP estimated at 38 mmHg.
Continue IV diuresis: Lasix 20 mg IV twice daily.
Follow daily weights.
Follow renal function
Persistent atrial fibrillation
Rapid ventricular response.
Off IV Cardizem.
Continue metoprolol XL, dose being adjusted due to tachycardia. Reinstated on digoxin 250 mcg daily. Follow level
Anticoagulation with Eliquis
#LLE pain suspect d/t PAD
#B/L Lower ext PAD noted on arterial study VITALIY
Vascular eval appreciated adequate perfusion, no acute intervention necessary at this time, cont conservative mgmt
-Cedrick wrap for the patient from the toes to the thighs. Continue to keep legs elevated.
pain control Tylenol mild pain, oxycodone mod severe pain, morphine severe breakthrough pain
PT/OT as above
Feet XR appreciated
-No acute fractures or dislocations.
-Mild to moderate degenerative changes within both first metatarsophalangeal joints.
-Nonspecific geographic area of osteopenia within the RIGHT fifth metatarsal head. No definitive erosion appreciated.
-Significant dorsal soft tissue edema within both feet.
#Hyponatremia
Fluid restriction
since improved from mid 120s to low 130s
#Hypokalemia
#potassium goal 4
monitor and replete as necessary
K 20 meQ Daily
Magnesium goal 2
monitor and replete as necessary
Hypophosphatemia
neutra-phos supplementation for today ordered 12/11
monitor and replete as necessary
#COPD
#Pulm hypertension
No wheezing noted
wean O2 supplementation as tolerated
Xopenex as needed, avoiding albuterol due to tachycardia as above
#Cachectic appearing thoracic upper body, bony promninence ribs noted
suspect malnutrition
dietary eval appreciated
cont nutrition supplement
DVT prophylaxis Eliquis
GI prophylaxis Protonix
Full code
Anticipated Discharge: 24 - 48 hours
Subjective/Interval History
-
Date of Service: December 14, 2023
Objective Data
-
Labs:
Laboratory Results
12/14/23
04:01
WBC 5.5
Hgb 13.9
Hct 41.2
Plt Count 147
Sodium 136
Potassium 3.9
Chloride 101
Carbon Dioxide 33 H
BUN 43 H
Creatinine 0.7
Glucose 84
Calcium 8.0 L
Vital Signs:
Vital Signs
Temp Pulse Resp BP Pulse Ox
98.3 F 95 16 116/71 95
12/14/23 15:14 12/14/23 15:14 12/14/23 15:14 12/14/23 07:49 12/14/23 15:14
I&O
12/13/23 12/14/23 12/15/23
06:59 06:59 06:59
Intake Total 1320 / 1320 600 / 600
Output Total 2775 / 2775 3025 / 3025 1400 / 1400
Balance -1455 / -1455 -2425 / -2425 -1400 / -1400
Physical Exam
-
General: Well Developed and No Apparent Distress
HEENT: Normocephalic, Atraumatic and Moist Mucous Membranes
Respiratory: Clear to Auscultation
Cardiac: Regular Rhythm and S1/S2; Negative Murmur, Rub or Gallop
GI: Soft, Nontender, Nondistended and Normal Bowel Sounds; Negative Organomegaly
Rectal: Deferred by Provider
Musculoskeletal: No Clubbing, No Cyanosis and No Edema
Skin: Negative Rash
Neuro: Nonfocal/Grossly Intact
--- NOTE | 2023-12-14 15:51 | PN.CDI ---
CDI
- -
CDI:
Physician Documentation Request
Admit Date: 12/09/23 15:30
Dear Doctor Zayra,
Please review the following and provide your response in the progress notes.
Clinical Indicators:
Clinical Laboratory Scientist, 12/09
#pt states that he weighed 160 lbs.
#...about 6 months ago before his appetite went bad. He believes this is his usual wt.
#This reflects a 12% wt loss in 6 months (significant).
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
Clinical Laboratory Scientist, 12/12
#Pt meets criteria from ASPEN/AND guidelines
#...for mild protein calorie malnutrition due to chronic disease.
PN, 12/13
#Cachectic appearing thoracic upper body,
#...bony promninence ribs noted suspect malnutrition
Please clarify the specificity regarding the severity of the malnutrition:
Mild protein calorie malnutrition of chronic disease
Other (please specify)
Kaufman Criteria ([facility] Hospitalist 2017)
2 or more criteria must be present for either
non severe or severe malnutrition
Note that the criteria differs related to the
presence of an acute or chronic illness
Chronic Illness
Energy Intake Non Severe: <75% for >1 month
Severe: <75% for >1 month
Weight Loss Non Severe: 5% over 1 month
7.5% over 3 months
10% over 6 months
20% over 1 year
Severe: >5% over 1 month
>7.5% over 3 months
>10% over 6 months
>20% over 1 year
Body Fat Non Severe: Mild Loss
Severe: Severe Loss
Muscle Mass Non Severe: Mild Loss
Severe: Severe Loss
Use of terms such as suspected, likely, concern for, or probable (associated with a specific diagnosis that is being evaluated, monitored, or treated as if it exists) are acceptable and can be coded in the inpatient setting, when documented at the
time of discharge.
Thank you,
Jovanna Hobbs RN BSN CCDS
CDI Specialist
please contact via tiger text
Please use your independent medical judgment in providing your response.
--- NOTE | 2023-12-14 21:07 | PTCARENOTE ---
Assumed care. patient resting in bed, denies pain or shortness of breath. A-FIB HR 98, irregular, dependent edema improved.Fluid restriction maintained, call ignacio in reach
[2023-12-15 03:48] VITALS: BP 132/101
[2023-12-15 03:50] VITALS: BP 121/95
[2023-12-15 04:20] LABS: Hematocrit 40.2 % (39.0-52.0); Hemoglobin 13.1 g/dL (13.0-18.0); Mean Corp Hgb Conc. 32.6 g/dL (33.0-37.0); Mean Corpuscular Hgb 29.4 pg (27.0-31.0); Mean Corpuscular Volume 90.1 fL (80.0-94.0); Mean Platelet Volume 9.7 fL (7.4-10.4); Platelet Count 171 10^3/uL (130-400); Red Blood Cell Count 4.46 10^6/uL (4.70-6.10); Red Cell Dist. Width 18.6 % (11.5-14.5); White Blood Cell Count 4.5 10^3/uL (4.8-10.8)
[2023-12-15 04:53] LABS: Blood Urea Nitrogen 43 mg/dl (9-20); Carbon Dioxide 33 mmol/L (22-30); Chloride 100 mmol/L (98-107); Estimated Creatinine Clearance 96 ml/min; Glucose 83 mg/dl (70-99); Magnesium 1.7 mg/dl (1.6-2.3); Phosphorus 2.7 mg/dl (2.5-4.5); Potassium 3.8 mmol/L (3.5-5.1); Sodium 136 mmol/L (135-145); eGFR > 60.00
[2023-12-15 05:09] VITALS: BMI 20.1
[2023-12-15 06:46] VITALS: BP 133/85
[2023-12-15] MEDS: ELIQUIS 5 MG PO (07:48)
[2023-12-15] MEDS: PROTONIX 40 MG PO (07:48)
[2023-12-15] MEDS: KCL 20 MEQ PO (07:48)
[2023-12-15] MEDS: LASIX 20 MG IV (07:49)
[2023-12-15] MEDS: JARDIANCE 10 MG PO (07:49)
[2023-12-15] MEDS: TOPROL XL 25 MG PO (07:49)
--- NOTE | 2023-12-15 10:40 | W.PN.CD ---
Today's Communication / Plan
-
-Patient can be discharged to home today on Lasix 20 mg PO BID.
-Continue other cardiac medications.
-Outpatient follow-up with Cardiology.
Impression / Plan
-
68 y/o male with NICM (previous EF 45%), persistent AFIB (on Eliquis), hx ETOH use (no longer drinks), Tobacco use (no longer smokes), cirrhosis, COPD, GERD referred for evaluation from Dr. Arzola's office. He has had worsened LE edema over the
past few weeks. Occasional SOB, but that is not a main complaint. He has been taking Eliquis for OAC, but stopped all of his other medicines (unclear timeline, but dig and lasix seem to be recent, and metoprolol was a while ago). He didn't think
they were helping, and he has been noncompliant with Cardiology follow-up--last seen in the office 1 year ago. O2 sat in pul office was 89% and he is on O2 by AK now. AFIB with RVR noted on arrival. He was seen in our office 12/07/22 and did not
follow up since he was feeling fine. He hasn't been checking weights.
[id number] HFrEF (EF 30-35%):
-Patient with a decline in LVEF on echocardiogram this admit , now 30-35% (previously 45% 1 year ago), severe biatrial enlargement, severe mitral regurgitation, and moderate to severe tricuspid regurgitation; due to medication/medical noncompliance.
-Patient can be discharged to home today on Lasix 20 mg PO BID.
-Continue Toprol-XL 25 mg BID.
-Continue Jardiance 10 mg daily; further GDMT ( JOBY/ARB/ARNi/MRA) limited by low blood pressure.
-Poor candidate for ICD due to medical noncompliance.
AFIB: persistent; meds limited by blood pressure.
-Heart rate has improved.
-Continue digoxin 250 mcg daily.
-Continue Toprol-XL.
-Of note, patient was on metoprolol and digoxin, but stopped both several months ago; did not follow-up with Cardiology as recommended (last seen 1 year ago).
-Continue Eliquis for OAC.
-Avoiding amiodarone due to cirrhosis (likely secondary to previous alcohol use); reportedly the patient no longer drinks.
Valvular heart disease:
-Severe MR and moderate to severe TR noted on echocardiogram.
-Conservative cardiac management overall with diuretic management; poor candidate for any aggressive measures.
Hyponatremia:
-Resolved.
COPD, suspected:
-needs pulm follow-up
-no longer smoking
Constipation, GERD, cirrhosis:
-Management as per primary
Subjective:
No major events overnight; feels very well from a cardiac standpoint.
Physical Exam
Vital Signs/Labs
Vital Signs
Temp Pulse Resp BP Pulse Ox
97.7 F 106 16 133/85 97
12/15/23 06:45 12/15/23 10:00 12/15/23 06:45 12/15/23 06:46 12/15/23 08:13
12/14/23 12/15/23 12/16/23
06:59 06:59 06:59
Actual Weight 67 kg 67.1 kg
12/15/23 03:58
12/15/23 03:58
PT 26.0 Sec (11.4-14.6) H 12/09/23 10:43
INR 2.35 12/09/23 10:43
Magnesium 1.7 mg/dl (1.6-2.3) 12/15/23 03:58
Free T4 1.27 ng/dl (0.78-2.19) 12/10/23 03:41
Digoxin Cancelled 12/14/23 08:42
12/09/23
10:43
[id number] Pept [id number]
Physical Exam
Constitutional: No acute distress and Comfortable
EENT: Anicteric
Cardiovascular: Rhythm/rate is irregular, Pedal edema present (2+), Systolic murmur present (Soft 2/6) and S1S2 is normal
Respiratory: Respiratory effort normal and Lungs clear to auscul.
GI: Soft
Neuro/Psych: AO x 3
Other: Skin (Warm, dry, intact)
Data Reviewed
-
Date of Service: December 15, 2023
EKG: Tracing Personally Visualized and interpreted (Telemetry: A-fib)
Medical Tests (PFT, Pathology etc): Discussed with Patient
Labs: Labs Reviewed by me
--- NOTE | 2023-12-15 11:21 | W.DS.TRANS ---
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
-
Discharge Instructions:
Sleep Apnea Risk Intermediate
Discharge Diagnosis/Procedures CHF
Afib
Diet 2 Gram Sodium
Instructions: *CBC Heart Failure Instructions
Stand-Alone Forms:
Changes to Home Medications: Yes
Discharge Medications:
DC Medications w/original date entered in [facility]
apixaban 5 mg tablet (Eliquis) 5 mg PO BID Blood Clot Prevention/Tx 12/09/23
sennosides 8.6 mg tablet (Senokot) 8.6 mg PO DAILY PRN constipation 12/09/23
acetaminophen 325 mg tablet 650 mg (2 x 325 mg) PO Q4HPRN PRN mild pain/fever/headache #30 tabs 12/15/23
digoxin 250 mcg (0.25 mg) tablet 250 mcg PO NOON #30 tabs 12/15/23
empagliflozin 10 mg tablet (Jardiance) 10 mg PO DAILY #30 tabs 12/15/23
furosemide 20 mg tablet 20 mg PO BID AT 0800,1600 #60 tabs 12/15/23
metoprolol succinate 25 mg tablet,extended release 24 hr 25 mg PO BID #60 tabs 12/15/23
pantoprazole 40 mg tablet,delayed release 40 mg PO DAILY #40 tabs 12/15/23
potassium chloride 20 mEq tablet,extended release(part/cryst) 20 meq PO DAILY #60 tabs 12/15/23
Home Medication Changes
All of above
Pending Results: No
[2023-12-15 11:24] VITALS: BP 123/86
[2023-12-15] MEDS: LANOXIN 250 MCG PO (11:36)
--- NOTE | 2023-12-16 10:14 | W.HF.CON ---
Heart Failure
- LV Function
Left ventricular function study result: LV Ejection fraction </= 35%
Ejection Fraction Percentage: 30-35
- ARNI
Patient already on ARNI: No
Heart Failure ARNI Contraindication: Hypotension
- ACEI/ARB
Patient already on ACEI/ARB: No
Heart Failure ACEI/ARB Contraindication: Hypotension
- Beta Colt
Patient already on Evidence Based Beta Colt: Yes
- Mineralocorticord Receptor Antagonist
Patient already on MRA: No
Heart Failure MRA Contraindication: Hypotension
- SGLT-2 Inhibitor
Patient already on SGLT-2 Inhibitor: Yes
- Afib Anticoagulation
Patient already on Anticoagulation for Afib: Yes
- NYHA CHF Classification
NYHA CHF Classification Level: Class III - Symptoms w/ min exertion, interferes w/ nml daily activity
- ACC/AHA Stage
ACC/AHA Stage: Stage C: Symptomatic Heart Failure
== END 2023-12-15 12:52 | disposition home or self-care (01) | DRG 291 ==
LOC: IVU 15:30
PROVIDERS: Nurse Practitioner; ADMITTING PHYSICIAN Internal Medicine; ATTENDING PHYSICIAN Internal Medicine; CONSULT PHYSICIAN Internal Medicine Cardiovascular Disease; EMERGENCY PHYSICIAN Emergency Medicine; FAMILY PHYSICIAN Internal Medicine; OTHER PHYSICIAN Surgery Vascular Surgery
DX: I11.0 Hypertensive heart disease with heart failure (principal); I50.23 Acute on chronic systolic (congestive) heart failure; E87.1 Hypo-osmolality and hyponatremia; E44.1 Mild protein-calorie malnutrition; J44.9 Chronic obstructive pulmonary disease, unspecified; I48.0 Paroxysmal atrial fibrillation; E87.6 Hypokalemia; I08.1 Rheumatic disorders of both mitral and tricuspid valves; K74.60 Unspecified cirrhosis of liver; K21.9 Gastro-esophageal reflux disease without esophagitis; Z68.20 Body mass index [BMI] 20.0-20.9, adult
CPT/HCPCS: 71045; 73620; 80048; 80053; 80162; 82248; 83735; 83880; 84100; 84132; 84439; 84443; 84484; 85025; 85027; 85610; 86803; 87070; 87147; 93005; 93306; 93922; 93925; 93970; 96365; 96366; 97116; 97163; 97167; 97530; 97535; 99291; J1160

== ENCOUNTER → 2024-07-25 11:09 | Outpatient (REF) | payer OTHER, SELFPAY ==
[2024-07-25 12:34] LABS: Blood Urea Nitrogen 26 mg/dl (9-20); Calcium 9.8 mg/dl (8.4-10.2); Carbon Dioxide 33 mmol/L (22-30); Chloride 98 mmol/L (98-107); Digoxin 0.6 ng/ml (0.8-2.0); Glucose 106 mg/dl (70-99); Potassium 4.6 mmol/L (3.5-5.1); Sodium 142 mmol/L (135-145); eGFR > 60.00
== END ==
LOC: REG 11:09
PROVIDERS: ATTENDING PHYSICIAN Nurse Practitioner; FAMILY PHYSICIAN Internal Medicine
DX: I50.20 Unspecified systolic (congestive) heart failure (principal)
CPT/HCPCS: 36415; 80048; 80162

== ENCOUNTER → 2024-12-05 09:59 | Outpatient (REF) | payer MEDICARE, SELFPAY | LOC: RCS 09:59 | PROVIDERS: ATTENDING PHYSICIAN Nurse Practitioner; FAMILY PHYSICIAN Internal Medicine | DX: I50.20 Unspecified systolic (congestive) heart failure (principal); I48.19 Other persistent atrial fibrillation | CPT/HCPCS: 93306 ==